=== PATIENT | female | born 1990 | race Caucasian/White ===

== ENCOUNTER 2018-12-31 05:57 | Emergency (ER) | payer BC ==
[~2018-12-31] VITALS: Ht 165.1 cm; Wt 60.9 kg
[~2018-12-31 05:57] MED LIST: FAMO-96 PO; ONDA4TAB14 PO
[2018-12-31 06:03] VITALS: BP 140/78; PULSE 77; RESP 18; Ht 165.1 cm; Wt 60.9 kg
[2018-12-31] MEDS ORDERED: ONDANSETRON (ODT) 4 MG TAB ODT STA (06:18)
== END 2018-12-31 07:35 | disposition home or self-care (01) ==
LOC: FTE 05:57
DX: R10.13 Epigastric pain (principal); R11.0 Nausea
CPT/HCPCS: 36415; 76705; 80053; 81001; 81025; 83690; 85025